=== PATIENT | male | born 1975 | race Caucasian/White ===

== ENCOUNTER 2021-07-26 10:24 | Emergency (ER) | payer OTHER ==
[2021-07-26] MEDS ORDERED: ACETAMINOPHEN 325 MG TABLET (FP) PO ONE (10:39)
[2021-07-26 11:09] VITALS: BP 124/74; PULSE 70; TEMP 98; BMI 27.7
== END 2021-07-26 11:56 | disposition home or self-care (01) ==
LOC: FER 10:24
DX: S22.31XA Fracture of one rib, right side, initial encounter for closed fracture (principal); W01.0XXA Fall on same level from slipping, tripping and stumbling without subsequent striking against object, initial encounter; Y93.K1 Activity, walking an animal
CPT/HCPCS: 71101-TC-RT-FY; 99283-25

== ENCOUNTER 2022-09-09 16:16 | Emergency (ER) | payer OTHER ==
[2022-09-09] MEDS ORDERED: AMOX TR/POT CLAV 875MG/125MG TABLETS (FP) PO ONE (16:19)
[2022-09-09] MEDS ORDERED: DIPHTH,PERTUSS(ACELL),TET 0.5 ML DISP.SYRIN IM ONE ×2 (16:19→16:27)
[2022-09-09 16:24] VITALS: BP 136/99; PULSE 66; RESP 18; TEMP 97; BMI 28.0
[2022-09-09] MEDS ORDERED: AMOX TR/POT CLAV 875MG/125MG TABLETS (FP) ONE (16:26)
== END 2022-09-09 16:37 | disposition home or self-care (01) ==
LOC: FER 16:16
PROC: 3E0234Z Introduction of Serum, Toxoid and Vaccine into Muscle, Percutaneous Approach (ICD-10-PCS; principal; 2022-09-09)
DX: S51.851A Open bite of right forearm, initial encounter (principal); L03.113 Cellulitis of right upper limb; W55.01XA Bitten by cat, initial encounter
CPT/HCPCS: 90715; 99283-25